=== PATIENT | male | born 1965 | race Caucasian/White ===

== ENCOUNTER 2018-06-20 17:14 | Inpatient (IN) ==
[2018-06-20] MEDS ORDERED: ceFAZolin 2,000 MG in PREMIX 1 EACH IV ONE (17:25)
[2018-06-20] MEDS ORDERED: ceFAZolin 1,000 MG VIAL ONE ×2 (17:45→17:47)
[2018-06-20] MEDS ORDERED: VANCOMYCIN 1,000 MG VIAL ONE (17:45)
[2018-06-20] MEDS ORDERED: LIDOCAINE 1%/EPI INJ 20 ML VIAL ONE (17:45)
[2018-06-20] MEDS ORDERED: BUPIVACAINE MPF 0.25% /EPI 30 ML VIAL ONE (17:45)
[2018-06-20] MEDS ORDERED: SUGAMMADEX 200 MG/2 ML VIAL IV ONE (17:58)
[2018-06-20] MEDS ORDERED: TISSUE ADHESIVE 1 EACH APPLICATOR TOP ONE (17:59)
[2018-06-20] MEDS ORDERED: SEVOFLURANE 1 UNIT/15 MINUTE INH ONE (18:32)
[2018-06-20] MEDS ORDERED: MIDAZOLAM 2 MG/2 ML VIAL ONE (18:32)
[2018-06-20] MEDS ORDERED: PROPOFOL 200 MG/20 ML VIAL IV ONE (18:32)
[2018-06-20] MEDS ORDERED: SODIUM CHLORIDE 0.9% 1,000 ML IV ONE (18:33)
[2018-06-20] MEDS ORDERED: ROCURONIUM 100 MG/10 ML VIAL IV ONE (18:33)
[2018-06-20] MEDS ORDERED: ONDANSETRON 4 MG/2 ML VIAL ONE (18:33)
[2018-06-20] MEDS ORDERED: ETOMIDATE 40 MG/20 ML VIAL IV ONE (18:33)
[2018-06-20] MEDS ORDERED: SUCCINYLCHOLINE 200 MG/10 ML VIAL ONE (18:33)
[2018-06-20] MEDS ORDERED: fentaNYL 100 MCG/2 ML VIAL ONE (18:33)
[2018-06-20] MEDS ORDERED: HYDROmorphone 2 MG/1 ML VIAL IV PRN (18:56)
[2018-06-20] MEDS ORDERED: PROMETHAZINE 25 MG/1 ML VIAL IM PRN (18:56)
[2018-06-20] MEDS ORDERED: ONDANSETRON 4 MG/2 ML VIAL IV PRN (18:56)
[2018-06-20] MEDS: KETOROLAC 15 MG/1 ML VIAL IV SCH (19:08)
[2018-06-20] MEDS: LACTATED RINGERS 1,000 ML IV SCH (19:08)
[2018-06-20] MEDS ORDERED: INFLUENZA VIRUS VACCINE 0.5 ML SYRINGE IM ONE (20:38)
[2018-06-21] MEDS: KETOROLAC 15 MG/1 ML VIAL IV SCH ×4 (00:35→18:06)
[2018-06-21] MEDS: LACTATED RINGERS 1,000 ML IV SCH (02:54)
[2018-06-21 04:54] LABS: Basophils % 0.3 % (0.0-0.8); Eosinophils # 0.2 10*3/uL (0.0-0.87); Eosinophils % 2.6 % (0.00-10.9); Hematocrit 37.7 VOL% (42.0-52.0); Immature Granulocytes % 0.2 %; Immature Granulocytes Absolute 0.02 #; Lymphocytes # 1.6 10*3/uL (1.4-4.0); Lymphocytes % 17.3 % (21.2-54.2); Mean Corpuscular HGB Conc 31.8 GM/DL (32-36); Mean Corpuscular Hemoglobin 30 PG (27-34); Mean Corpuscular Volume 92.6 FL (87-102); Mean Platelet Volume 9.2 FL (9.6-12.0); Monocytes # 0.8 10*3/uL (0.11-0.8); Monocytes % 8.4 % (1.7-12.7); Neutrophils # 6.6 10*3/uL (1.4-7.4); Neutrophils % 71.2 % (38.7-73.9); Platelet Count 214 T/CUMM (130-400); Red Blood Count 4.07 MC/CUMM (3.8-5.5); Red Cell Distribution Width 13.7 % (9.3-17.3); White Blood Count 9.3 T/CUMM (4-12)
[2018-06-21 05:25] LABS: Calcium 7.7 MG/DL (8.5-10.1); Potassium 3.9 MMOL/L (3.5-5.1)
[2018-06-21] MEDS: TAMSULOSIN 0.4 MG CAPSULE PO SCH ×2 (09:31→20:49)
[2018-06-21] MEDS: ENOXAPARIN 40 MG/0.4 ML SYRINGE SUBCUT SCH (12:02)
[2018-06-22] MEDS: KETOROLAC 15 MG/1 ML VIAL IV SCH ×2 (01:30→06:08)
[2018-06-22] MEDS: TAMSULOSIN 0.4 MG CAPSULE PO SCH (08:25)
[2018-06-22 11:09] VITALS: BP 139/91
[2018-06-22] MEDS: ENOXAPARIN 40 MG/0.4 ML SYRINGE SUBCUT SCH (11:45)
== END 2018-06-22 12:38 | disposition home or self-care (01) | DRG 581 ==
LOC: N.ED 17:14 → N.ICU 17:33 → N.EDINP 18:02 → N.ICU 18:26 → N.3E 06-21 10:46
PROVIDERS: ADMIT Surgery; ATTEND Surgery